=== PATIENT | female | born 1940 | race Caucasian/White ===

== ENCOUNTER 2018-11-05 15:21 | Day surgery (SDC) | payer MEDICARE, OTHER ==
--- NOTE | 2018-11-04 17:28 | PREAC ---
Date/Time of Note Date/Time of Note DATE: 11/04/18 TIME: 17:24 Anesthesia Eval and Record Evaluation Time Pre-Procedure Interview DATE: 11/04/18 TIME: 17:24 Age 78 Sex female NPO: 8 hrs Preoperative diagnosis evaluation Planned procedure EGD Past Medical History Past Medical History: Includes Cardio: HTN, Arrythmia, PPM/AICD, Other (cardiac arrest 09/16/18) Pulm: Asthma, Other (pnumonia) Surgery & Anesthesia Issues No known issue Meds Anticoagulation: No Beta Lorena within 24 hr: No Reason Beta Lorena not given: Pt. not on B-Lorena Meds reviewed: Yes Allergies Coded Allergies: No Known Allergy (Unverified , 10/12/18) Allergies Reviewed: Yes Labs/Studies Labs Reviewed: Reviewed by anesthesiologist test: N/A Studies: ECG (AFIB), CXR (levated left hemidiaphragm with left lung base atelectasis. Improved aeration of the lung bases.) Pre-procedure Exam Airway: Adequate mouth opening Mallampati: Mallampati II Teeth: Normal Lung: Normal Heart: Normal ASA Physical Status ASA physical status: 3 Emergency: None Planned Anesthetic General/MAC: MAC Pre-operative Attestations Prior to commencing anesthesia and surgery, the patient was re-evaluated, there was verification of: *The patient's identity *The results of appropriate recent lab work and preoperative vital signs *The above evaluation not changing prior to induction *Anesthetic plan, risk benefits, alternative and complications discussed with patient/family; questions answered; patient/family understands, accepts and wishes to proceed. BASILIO DON Nov 04, 2018 17:28
[~2018-11-05] VITALS: Ht 165.1 cm; Wt 63.0 kg
[2018-11-05 15:45] VITALS: Ht 165.1 cm; Wt 63.0 kg
[2018-11-05] MEDS ORDERED: ETOMIDATE 20 MG INJ ONE (15:54)
[2018-11-05 15:55] VITALS: BP 159/88; PULSE 62; RESP 22
[2018-11-05 16:25] VITALS: BP_SYST 98; BP_SYST 99; BP_DIAS 57; BP_DIAS 76; PULSE 103; PULSE 105; RESP 18; RESP 22
--- NOTE | 2018-11-05 16:31 | PAC ---
Date/Time of Note Date/Time of Note DATE: 11/05/18 TIME: 16:30 Post-Anesthesia Notes Post-Anesthesia Note Activity: WNL Respiratory function: WNL Cardiovascular function: WNL Mental status: Baseline Pain reasonably controlled: Yes Hydration appropriate: Yes Nausea/Vomiting absent: Yes INOCENCIO ANDERSON MD Nov 05, 2018 16:31
== END 2018-11-05 17:25 | disposition home or self-care (01) ==
LOC: GIL 15:21
PROVIDERS: ATTEND Internal Medicine Gastroenterology
DX: K92.1 Melena (principal); K44.9 Diaphragmatic hernia without obstruction or gangrene; K29.00 Acute gastritis without bleeding; I10 Essential (primary) hypertension; J45.909 Unspecified asthma, uncomplicated; I48.91 Unspecified atrial fibrillation
CPT/HCPCS: 82962; 88305; 88312